=== PATIENT | female | born 1990 | race Caucasian/White ===

== ENCOUNTER 2016-07-29 12:37 | Emergency (ER) | payer OTHER ==
[~2016-07-29 12:37] MED LIST: AMOXICILLIN875 MG; AMOXICILLIN875 MG PO; BACTRIM 400-801 TA1 PO; BENADRYL25 M3 PO; CEFTIN; FAMOTIDINE PO; FLEXERIL10 M1 PO; IBUPROFEN600 MG PO; IBUPROFEN800 MG PO; KEFLEX500 M1 PO; MEDROL4 MG/DOSE- PO; MOTRIN PO; NO MEDICATIONS; PREDNISONE PO; PREDNISONE1 MG PO; ROBAXIN PO; TYLENOL #3 PO; VICODIN 5/1 TAB 5/50 PO; VOLTAREN75 MG PO
== END 2016-07-29 13:21 | disposition home or self-care (01) ==
LOC: SED 12:37
DX: M54.5 Low back pain (principal); F41.9 Anxiety disorder, unspecified; F17.210 Nicotine dependence, cigarettes, uncomplicated
CPT/HCPCS: 99282

== ENCOUNTER 2017-01-09 19:24 | Emergency (ER) | payer OTHER ==
[~2017-01-09] VITALS: Ht 149.9 cm; Wt 54.4 kg
== END 2017-01-09 21:01 | disposition home or self-care (01) ==
LOC: SED 19:24
DX: S16.1XXA Strain of muscle, fascia and tendon at neck level, initial encounter (principal); F41.9 Anxiety disorder, unspecified; M41.9 Scoliosis, unspecified; F17.210 Nicotine dependence, cigarettes, uncomplicated; V43.52XA Car driver injured in collision with other type car in traffic accident, initial encounter; Y92.410 Unspecified street and highway as the place of occurrence of the external cause
CPT/HCPCS: 99283